=== PATIENT | female | born 1955 | race Caucasian/White ===

== ENCOUNTER 2017-01-27 10:19 | Emergency (ER) ==
[2017-01-27 10:26] VITALS: BP 180/75
== END 2017-01-27 10:40 | disposition left against medical advice (07) ==
LOC: ER 10:19
DX: Z53.9 Procedure and treatment not carried out, unspecified reason (principal)

== ENCOUNTER 2017-02-26 10:02 | Day surgery (SDC) | payer OTHER ==
[~2017-02-26 10:02] MED LIST: PROPOFOL INJ 200 MG/20 ML VIAL IV ONE
[2017-02-26 12:33] VITALS: BP 164/53
--- NOTE | 2017-02-26 13:37 | Operative Report ---
Operative Report DATE OF SURGERY: 02/26/17 Operative Report: The risks, benefits and alternatives of the procedure including risks of bleeding, perforation requiring surgery are explained to the patient detail and informed consent was obtained. Patient was taken back to the endoscopy suite and placed in the left, lateral decubital position. Timeout was called. Propofol medications administered. A rectal examination was done which did not reveal any masses, tears or fissures. An Olympus video scope was inserted into the patient's rectum. The scope was then carefully advanced all the way to the cecum. The cecum was identified by the usual anatomical landmarks including the ileocecal valve as well as appendiceal office. Photodocumentation was obtained. Prep was good. Scope was then sequentially pulled back via the various segments of the colon including the ascending colon, hepatic flexure, transverse colon, splenic flexure, descending colon, and finding to the rectosigmoid portions of the colon. Retroflexion maneuver was performed. PREOPERATIVE DIAGNOSIS: Personal history of colon polyp POSTOPERATIVE DIAGNOSIS: Sigmoid polyp 2 that was removed via snare polypectomy. Rectal polyp 1 this removed via snare polypectomy. Both polyps were retrieved. Internal hemorrhoids OPERATION: Colonoscopy with snare polypectomy SURGEON: JERI LANDON ANESTHESIA: LMAC TISSUE REMOVED OR ALTERED: Polyps retrieved as described COMPLICATIONS: None. ESTIMATED BLOOD LOSS: None. INTRAOPERATIVE FINDINGS: As described above. PROCEDURE: Patient tolerated the procedure well. No immediate postprocedure complications are noted. Patient discharged in good condition. Discharge date 02/26/2017. Discharge diet: Regular. Discharge activity: Regular. 2-3 week follow-up to discuss findings. We will wait on pathology. Patient is instructed to call the office or proceed to the emergency room should there be any further problems or questions. 3-5 year surveillance colonoscopy.
== END 2017-02-26 12:25 | disposition home or self-care (01) ==
LOC: END 10:02
PROVIDERS: ATTEND Internal Medicine Gastroenterology
PROC: 0DBF8ZX Excision of Right Large Intestine, Via Natural or Artificial Opening Endoscopic, Diagnostic (ICD-10-PCS; 2017-02-26)
PROC: 0DBP8ZX Excision of Rectum, Via Natural or Artificial Opening Endoscopic, Diagnostic (ICD-10-PCS; principal; 2017-02-26 12:30)
DX: D12.5 Benign neoplasm of sigmoid colon (principal); K63.5 Polyp of colon; K64.8 Other hemorrhoids; Z80.0 Family history of malignant neoplasm of digestive organs
CPT/HCPCS: 45385; 88305 ×2; J2704; 810

== ENCOUNTER 2020-04-13 09:14 | Inpatient (IN) | payer MEDICARE, BC ==
[2020-04-13] MEDS ORDERED: PENICILLIN V POTASSIUM 500 MG TABLET PO ONE (09:38)
--- NOTE | 2020-04-13 09:42 | ER Document Report ---
ED General - General Chief Complaint: Jaw Pain Stated Complaint: JAW PAIN Time Seen by Provider: 04/13/20 09:24 Primary Care Provider: LYNDON SIMPSON NP [Primary Care Provider] - Follow up as needed Notes: HPI: 64-year-old female that states she woke yesterday with some pain to the left lower jaw. She denies any fevers, vomiting, or facial swelling. She states it hurts to bite food to the left lower jaw. She denies any posterior sore throat or fevers. Patient states for 10 days she has had a nonproductive cough. She denies any and all chest pain or leg swelling. She went to see the primary care physician who placed her on cough medicine. He did not order a coronavirus test. EMS states that the patient was satting between 90 and 92%. Patient does not smoke and is not on oxygen at home and has no history of asthma or COPD. ROS: See HPI All other review of systems reviewed and otherwise negative Reviewed vital signs and nursing note as charted by RN. PHYSICAL EXAM: CONSTITUTIONAL: Alert and oriented and responds appropriately to questions. Well-appearing; well-nourished HEAD: Normocephalic; atraumatic EYES: PERRL; Conjunctivae clear, sclerae non-icteric ENT: Normal nose; no rhinorrhea; moist mucous membranes; pharynx without lesions noted; tenderness to palpation of the left posterior molar region with no obvious dental decay or intraoral abscess. No obvious facial swelling, mastoid tenderness or swelling, with clear TMs bilaterally NECK: Supple without meningismus; non-tender; no palpable anterior or posterior cervical lymphadenopathy, no masses or thyromegaly; no rash or induration or fullness to the neck CARD: Regular rate and rhythm; no murmurs; symmetric distal pulses RESP: Normal chest excursion without splinting or tachypnea; breath sounds clear and equal bilaterally; no wheezes, no rhonchi, no rales ABD/GI: Normal bowel sounds; non-distended; soft, non-tender BACK: The back appears normal and is non-tender to palpation EXT: Normal ROM in all joints; non-tender to palpation; no edema SKIN: No acute lesions noted NEURO: CN 2-12 intact; 5/5 bilateral upper and lower extremity strength with sensation intact to light touch PSYCH: The patient's mood and manner are appropriate. Grooming and personal hygiene are appropriate. TRAVEL OUTSIDE OF THE [place] IN LAST 30 DAYS: No - Related Data Allergies/Adverse Reactions: No Known Allergies Allergy (Verified 04/13/20 10:07) Past Medical History - Social History Smoking Status: Unknown if Ever Smoked Family History: Reviewed & Not Pertinent - Past Medical History Cardiac Medical History: Denies: Hx Coronary Artery Disease, Hx Heart Attack, Hx Hypertension - WHITE COAT Pulmonary Medical History: Denies: Hx Asthma, Hx Bronchitis, Hx COPD, Hx Pneumonia Neurological Medical History: Denies: Hx Cerebrovascular Accident, Hx Seizures Renal/ Medical History: Denies: Hx Peritoneal Dialysis Musculoskeletal Medical History: Denies Hx Arthritis - Immunizations Hx Diphtheria, Pertussis, Tetanus Vaccination: Yes Physical Exam - Vital signs Vitals: Temp Pulse Resp BP Pulse Ox 98.2 F 70 22 H 192/80 H 95 04/13/20 09:14 04/13/20 09:14 04/13/20 09:14 04/13/20 09:14 04/13/20 09:14 Course - Re-evaluation Re-evalutation: 04/13/20 09:41 Given the history and physical examination, we will obtain a cardiac panel, x- ray of the chest, troponin, EKG, and reassess. I will treat the patient with penicillin for the possibility of a dental infection. Given the nonproductive cough for 10 days I would like to evaluate for the possibility of ACS, pneumonia, coronavirus 19, or heart failure. Patient is satting 92 to 93% on room air here. Patient denies any and all chest pain. Has no calf pain or leg swelling. No recent trips or travel. I do believe PE and dissection to be unlikely. 04/13/20 10:01 EKG shows a heart rate of 72, normal sinus rhythm, normal axis, no ST elevation or depression. 04/13/20 11:10 Labs and imaging as recorded. Patient's room air saturation is currently 89-90. Right upper lobe consolidation. I have provided Rocephin and azithromycin. I do anticipate admission for hypoxic pneumonia. - Vital Signs Vital signs: Temp Pulse Resp BP Pulse Ox 98.2 F 70 22 H 192/80 H 95 04/13/20 09:14 04/13/20 09:14 04/13/20 09:14 04/13/20 09:14 04/13/20 09:14 - Laboratory Result Diagrams: 04/13/20 09:04 04/13/20 09:04 Laboratory results interpreted by me: 04/13/20 04/13/20 04/13/20 09:04 09:04 09:04 WBC 13.9 H Lymphocytes % (Manual) 9 L Eosinophils % (Manual) 26 H Absolute Eos (Manual) 3.6 H BUN 28 H Creatinine 1.49 H Est GFR ( Amer) 42 L Est GFR (MDRD) Non-Af 35 L Glucose 138 H NT-Pro-B Natriuret Pep 126 H Discharge - Discharge Clinical Impression: Bacterial pneumonia, Hypoxia Condition: Fair Disposition: ADMITTED INPATIENT Admitting Provider: Le (Hospitalist) Unit Admitted: IMCU Referrals: LYNDON SIMPSON NP [Primary Care Provider] - Follow up as needed
[2020-04-13 09:45] LABS: HEMATOCRIT 44.7 % (36.0-47.0); HEMOGLOBIN 15.4 g/dL (12.0-15.5); MEAN CORPUSCULAR HEMOGLOBIN 30.7 pg (27.0-33.4); MEAN CORPUSCULAR HGB CONC 34.4 g/dL (32.0-36.0); MEAN CORPUSCULAR VOLUME 89 fl (80-97); PLATELET COUNT 350 10^3/uL (150-450); RED BLOOD COUNT 5.02 10^6/uL (3.72-5.28); RED CELL DISTRIBUTION WIDTH 13.8 % (11.5-14.0); WHITE BLOOD COUNT 13.9 10^3/uL (4.0-10.5)
[2020-04-13] MEDS ORDERED: KETOROLAC TROMETHAMINE INJ/PF 30 MG/1 ML SDV IV ONE (10:01)
[2020-04-13 10:02] LABS: ANION GAP 10 (5-19); BLOOD UREA NITROGEN 28 mg/dL (7-20); CALCIUM 9.8 mg/dL (8.4-10.2); CARBON DIOXIDE 26 mmol/L (22-30); CHLORIDE 102 mmol/L (98-107); GLUCOSE 138 mg/dL (75-110); POTASSIUM 3.8 mmol/L (3.6-5.0)
[2020-04-13 10:18] LABS: ABSOLUTE LYMPHOCYTES# (MANUAL) 1.4 10^3/uL (0.5-4.7); BASOPHILS % (MANUAL) 0 % (0-2); LYMPHOCYTES % (MANUAL) 9 % (13-45); MONOCYTES % (MANUAL) 7 % (3-13); SEGMENTED NEUTROPHILS % (MAN) 57 % (42-78); TOTAL CELLS COUNTED 100
--- NOTE | 2020-04-13 10:19 | RADIOLOGY REPORT (SQ) ---
EXAM DESCRIPTION: CHEST SINGLE VIEW IMAGES COMPLETED DATE/TIME: 04/13/2020 10:07 am REASON FOR STUDY: 36; SOB COMPARISON: None. EXAM PARAMETERS: NUMBER OF VIEWS: One view. TECHNIQUE: Single frontal radiographic view of the chest acquired. RADIATION DOSE: NA LIMITATIONS: None. FINDINGS: LUNGS AND PLEURA: Consolidation in the right upper lobe along the fissure. Minimal linear atelectasis in the left base. Lung chung are otherwise clear. No pneumothorax. MEDIASTINUM AND HILAR STRUCTURES: No masses. Contour normal. HEART AND VASCULAR STRUCTURES: Heart normal in size. Normal vasculature. BONES: No acute findings. HARDWARE: None in the chest. OTHER: No other significant finding. IMPRESSION: Right upper lobe consolidation consistent with pneumonia. TECHNICAL DOCUMENTATION: JOB ID: [id number] 2010 [employer]- All Rights Reserved Reading location - IP/workstation name: [email or web address]
[2020-04-13 10:21] LABS: RBC MORPHOLOGY COMMENT NORMO-CYTIC/CHROMIC
[2020-04-13 10:23] LABS: PLATELET CLUMPS PRESENT; PLATELET COMMENT ADEQUATE
[2020-04-13 10:25] LABS: EOSINOPHILS % (MANUAL) 26 % (0-6)
[2020-04-13] MEDS ORDERED: CEFTRIAXONE 1 GM/D5W RTU 1 GM/50 ML RTUPB IV ONE (11:10)
[2020-04-13] MEDS ORDERED: AZITHROMYCIN INJ 500 MG VIAL IV ONE (11:10)
--- NOTE | 2020-04-13 11:15 | EKG REPORT ---
SEVERITY:- NORMAL ECG - SINUS RHYTHM : Confirmed by: Khoa Hyman MD 13-Apr-2020 11:14:31
[2020-04-13] MEDS ORDERED: ONDANSETRON HCL INJ/PF 4 MG/2 ML SDV IV PRN (12:20)
--- NOTE | 2020-04-13 12:20 | PDOC H&P ---
History of Present Illness Admission Date/PCP: LYNDON SIMPSON NP Patient complains of: Left jaw pain History of Present Illness: KIM THOMAS is a 64 year old female with history of hypertension went to urgent care this morning with complaints of left jaw pain found to have very high blood pressures patient was referred to ER for further evaluation. Work-up in the ER shows right upper lobe consolidative pneumonia and the patient was hypoxic pulse ox is 89% at the time of arrival. Patient was started on Rocephin and Zithromax tested for COVID. As per the patient test was done 2 weeks ago at [facility] which was negative. Past Medical History Cardiac Medical History: Denies: Coronary Artery Disease, Myocardial Infarction, Hypertension - WHITE COAT Pulmonary Medical History: Denies: Asthma, Bronchitis, Chronic Obstructive Pulmonary Disease (COPD), Pneumonia Neurological Medical History: Denies: Seizures Musculoskeltal Medical History: Denies: Arthritis Hematology: Denies: Anemia Past Surgical History Past Surgical History: Reports: Orthopedic Surgery - right hand Social History Information Source: Patient Smoking Status: Unknown if Ever Smoked Electronic Cigarette use?: No Hx Recreational Drug Use: No Hx Prescription Drug Abuse: No - Advance Directive Resuscitation Status: Full Code Family History Family History: Reviewed & Not Pertinent Parental Family History Reviewed: Yes - Hypertension Children Family History Reviewed: Yes Sibling(s) Family History Reviewed.: Yes Medication/Allergy Home Medications: Multivitamin [Multivitamins] 1 tab PO DAILY 02/23/17 Allergies/Adverse Reactions: No Known Allergies Allergy (Verified 04/13/20 10:07) Review of Systems Constitutional: PRESENT: fatigue, weakness. ABSENT: fever(s), headache(s), night sweats Eyes: ABSENT: visual disturbances Ears: ABSENT: hearing changes Nose, Mouth, and Throat: PRESENT: other - left jaw pain. ABSENT: sore throat Cardiovascular: PRESENT: dyspnea on exertion Respiratory: PRESENT: dyspnea Physical Exam Vital Signs: Temp Pulse Resp BP Pulse Ox 98.2 F 70 23 H 168/80 H 97 04/13/20 09:14 04/13/20 09:14 04/13/20 11:01 04/13/20 11:01 04/13/20 11:01 Intake & Output 04/12/20 04/13/20 04/14/20 06:59 06:59 06:59 Intake Total 250 Balance 250 Weight 83.461 kg General appearance: PRESENT: no acute distress, cooperative, well-developed Head exam: PRESENT: atraumatic Eye exam: PRESENT: PERRLA Mouth exam: PRESENT: moist, tongue midline Teeth exam: PRESENT: poor dentation Neck exam: ABSENT: carotid bruit, JVD, lymphadenopathy, thyromegaly Respiratory exam: PRESENT: decreased breath sounds Cardiovascular exam: PRESENT: RRR. ABSENT: diastolic murmur, rubs, systolic murmur Pulses: PRESENT: normal dorsalis pedis pul GI/Abdominal exam: PRESENT: normal bowel sounds, soft. ABSENT: distended, guarding, mass, organolmegaly, rebound, tenderness Rectal exam: PRESENT: deferred Extremities exam: PRESENT: full ROM. ABSENT: calf tenderness, clubbing, pedal edema Neurological exam: PRESENT: alert, awake, oriented to person, oriented to place, oriented to time, oriented to situation, CN II-XII grossly intact. ABSENT: motor sensory deficit Psychiatric exam: PRESENT: appropriate affect, normal mood. ABSENT: homicidal ideation, suicidal ideation Results Laboratory Results: 04/13/20 09:04 04/13/20 09:04 04/13/20 04/13/20 09:04 09:04 WBC 13.9 H RBC 5.02 Hgb 15.4 Hct 44.7 MCV 89 MCH 30.7 MCHC 34.4 RDW 13.8 Plt Count 350 Seg Neutrophils % Not Reportable Sodium 137.6 Potassium 3.8 Chloride 102 Carbon Dioxide 26 Anion Gap 10 BUN 28 H Creatinine 1.49 H Est GFR ( Amer) 42 L Glucose 138 H Calcium 9.8 04/13/20 04/13/20 09:04 09:04 Troponin I < 0.012 NT-Pro-B Natriuret Pep 126 H Impressions: Chest X-Ray 04/13/20 09:38 IMPRESSION: Right upper lobe consolidation consistent with pneumonia. Assessment and Plan - Diagnosis (1) Bacterial pneumonia Is this a current diagnosis for this admission?: Yes Plan: 04/13/2020-patient is going to be admitted to [facility] for right upper lobe consolidated pneumonia blood cultures sputum cultures are pending Kober test is pending to continue IV Rocephin and Zithromax. GI prophylaxis DVT prophylaxis will be initiated. (2) Hypoxia Is this a current diagnosis for this admission?: Yes Plan: 04/13/2020-patient came in with pulse ox of 89%. Requiring oxygen supplementations. Chest x-ray indicated for right upper lobe consolidative pneumonia. Coronavirus testing is pending. Hypoxia most likely secondary to pneumonia. (3) HTN (hypertension) Is this a current diagnosis for this admission?: Yes Plan: 04/13/2020-patient found to have a very high elevated blood pressures to start her on IV hydralazine 10 mg every 6 hours as needed for systolic blood pressure more than 170. (4) COVID-19 Is this a current diagnosis for this admission?: Yes Plan: 04/13/2020-coronavirus testing is pending. Patient has a test done in [facility] 2 weeks ago which was negative. - Time Anticipated Discharge Disposition: Home, Self Care Anticipated Discharge Timeframe: within 72 hours
[2020-04-13] MEDS ORDERED: HYDRALAZINE HCL INJ/PF 20 MG/1 ML SDV IV PRN ×2 (12:25→17:53)
[2020-04-13] MEDS: ACETAMINOPHEN 325 MG TABLET PO PRN ×2 (13:48→17:57)
[2020-04-13] MEDS: OXYCODONE-ACETAMINOPHEN 5-325 MG TABLET PO PRN ×2 (16:11→22:26)
[2020-04-13] MEDS: PANTOPRAZOLE SODIUM 40 MG TABLET.DR PO SCH (17:34)
[2020-04-13] MEDS ORDERED: KETOROLAC TROMETHAMINE INJ/PF 30 MG/1 ML SDV ONE (17:56)
[2020-04-13] MEDS: KETOROLAC TROMETHAMINE INJ/PF 30 MG/1 ML SDV IV SCH ×2 (18:10→23:32)
--- NOTE | 2020-04-13 21:18 | RADIOLOGY REPORT (SQ) ---
CT MAXILLOFACIAL WITHOUT IV CONTRAST HISTORY: Left jaw pain. COMPARISON: None. TECHNIQUE: CT scan of the facial bones was performed without IV contrast. This exam was performed according to our departmental dose-optimization program, which includes automated exposure control, adjustment of the mA and/or kV according to patient size and/or use of iterative reconstruction technique. FINDINGS: No acute facial bone fracture is seen. No air-fluid levels are seen in the paranasal sinuses. There is minimal mucosal thickening of the bilateral ethmoid air cells. The mastoid air cells are clear. No retrobulbar mass or hematoma is identified. IMPRESSION: No acute facial bone fracture.
[2020-04-14 03:53] LABS: ABSOLUTE BASOPHILS # (AUTO) 0.1 10^3/uL (0.0-0.2); ABSOLUTE EOSINOPHILS # (AUTO) 2.6 10^3/uL (0.0-0.6); ABSOLUTE LYMPHOCYTES (AUTO) 1.6 10^3/uL (0.5-4.7); ABSOLUTE MONOCYTES (AUTO) 0.9 10^3/uL (0.1-1.4); ABSOLUTE NEUT (AUTO) 7.5 10^3/uL (1.7-8.2); BASOPHILS % (AUTO) 0.8 % (0-2); EOSINOPHILS % (AUTO) 20.5 % (0-6); HEMATOCRIT 43.4 % (36.0-47.0); HEMOGLOBIN 14.9 g/dL (12.0-15.5); LYMPHOCYTES % (AUTO) 12.9 % (13-45); MEAN CORPUSCULAR HEMOGLOBIN 30.3 pg (27.0-33.4); MEAN CORPUSCULAR HGB CONC 34.3 g/dL (32.0-36.0); MEAN CORPUSCULAR VOLUME 88 fl (80-97); MONOCYTES % (AUTO) 7.1 % (3-13); PLATELET COUNT 333 10^3/uL (150-450); RED BLOOD COUNT 4.91 10^6/uL (3.72-5.28); RED CELL DISTRIBUTION WIDTH 13.8 % (11.5-14.0); SEGMENTED NEUTROPHILS % (AUTO) 58.7 % (42-78); TOTAL CELLS COUNTED % (AUTO) 100 %; WHITE BLOOD COUNT 12.7 10^3/uL (4.0-10.5)
[2020-04-14] MEDS: OXYCODONE-ACETAMINOPHEN 5-325 MG TABLET PO PRN ×2 (04:00→16:07)
[2020-04-14 04:08] LABS: ALBUMIN 3.2 g/dL (3.5-5.0); ALKALINE PHOSPHATASE 64 U/L (38-126); ANION GAP 10 (5-19); ASPARTATE AMINO TRANSFERASE 32 U/L (14-36); BILIRUBIN,DIRECT 0.3 mg/dL (0.0-0.4); BILIRUBIN,TOTAL 0.9 mg/dL (0.2-1.3); BLOOD UREA NITROGEN 26 mg/dL (7-20); CALCIUM 9.6 mg/dL (8.4-10.2); CARBON DIOXIDE 22 mmol/L (22-30); CHLORIDE 105 mmol/L (98-107); CHOLESTEROL 234.61 mg/dL (0-200); GLUCOSE 119 mg/dL (75-110); POTASSIUM 3.8 mmol/L (3.6-5.0); TOTAL PROTEIN 5.5 g/dL (6.3-8.2); TRIGLYCERIDES 383 mg/dL (<150)
[2020-04-14 04:11] LABS: VLDL CHOLESTEROL 76.6 mg/dL (10-31)
[2020-04-14 04:20] LABS: DIRECT LDL 142 mg/dL (<100)
[2020-04-14] MEDS: PANTOPRAZOLE SODIUM 40 MG TABLET.DR PO SCH ×2 (05:39→16:06)
[2020-04-14] MEDS ORDERED: PANTOPRAZOLE SODIUM 40 MG TABLET.DR PO SCH (06:00)
[2020-04-14] MEDS: KETOROLAC TROMETHAMINE INJ/PF 30 MG/1 ML SDV IV SCH ×3 (06:38→17:50)
[2020-04-14] MEDS ORDERED: AZITHROMYCIN 500 MG in DEXTROSE 5%-WATER 250 ML IV SCH (08:00)
[2020-04-14] MEDS: ENOXAPARIN SODIUM INJ 40 MG/0.4 ML DISP.SYRIN SUBCUT SCH (09:09)
[2020-04-14] MEDS ORDERED: CEFTRIAXONE 1 GM/D5W RTU 1 GM/50 ML RTUPB IV SCH (10:00)
[2020-04-14] MEDS ORDERED: AZITHROMYCIN INJ 500 MG VIAL IV SCH (10:00)
--- NOTE | 2020-04-14 10:09 | PDOC PROGRESS REPORT ---
Subjective Progress Note for:: 04/14/20 Subjective:: a 64 year old female with history of hypertension went to urgent care this morning with complaints of left jaw pain found to have very high blood pressures patient was referred to ER for further evaluation. Work-up in the ER shows right upper lobe consolidative pneumonia and the patient was hypoxic pulse ox is 89% at the time of arrival. Patient was started on Rocephin and Zithromax tested for COVID. As per the patient test was done 2 weeks ago at [facility] which was negative. 04/14/[id number]-tgkk-old female admitted for right upper lobe consolidated pneumonia. Most likely community-acquired pneumonia getting IV antibiotic therapy. Still complaining of left jaw pain CT of the facial bones is normal. Patient is receiving Percocet and Toradol at this time. Troponins are negative. Coronavirus testing is negative. Reason For Visit: PNEUMONIA Physical Exam Vital Signs: Temp Pulse Resp BP Pulse Ox 98.1 F 71 20 145/47 H 94 04/14/20 07:33 04/14/20 07:33 04/14/20 07:33 04/14/20 07:33 04/14/20 07:33 Intake & Output 04/13/20 04/14/20 04/15/20 06:59 06:59 06:59 Intake Total 300 Balance 300 Weight 88.1 kg General appearance: PRESENT: no acute distress, cooperative, obese Head exam: PRESENT: atraumatic Eye exam: PRESENT: PERRLA Ear exam: PRESENT: normal external ear exam Mouth exam: PRESENT: neck supple Teeth exam: PRESENT: poor dentation Neck exam: ABSENT: carotid bruit, JVD, lymphadenopathy, thyromegaly Respiratory exam: PRESENT: decreased breath sounds Cardiovascular exam: PRESENT: RRR. ABSENT: diastolic murmur, rubs, systolic murmur GI/Abdominal exam: PRESENT: normal bowel sounds, soft. ABSENT: distended, guarding, mass, organolmegaly, rebound, tenderness Rectal exam: PRESENT: deferred Extremities exam: PRESENT: full ROM. ABSENT: calf tenderness, clubbing, pedal edema Neurological exam: PRESENT: alert, awake, oriented to person, oriented to place, oriented to time, oriented to situation, CN II-XII grossly intact. ABSENT: motor sensory deficit Results Laboratory Results: 04/14/20 03:42 04/14/20 03:42 04/13/20 04/13/20 04/14/20 09:04 09:04 03:42 WBC 13.9 H 12.7 H RBC 5.02 4.91 Hgb 15.4 14.9 Hct 44.7 43.4 MCV 89 88 MCH 30.7 30.3 MCHC 34.4 34.3 RDW 13.8 13.8 Plt Count 350 333 Seg Neutrophils % Not Reportable 58.7 Sodium 137.6 Potassium 3.8 Chloride 102 Carbon Dioxide 26 Anion Gap 10 BUN 28 H Creatinine 1.49 H Est GFR ( Amer) 42 L Glucose 138 H Calcium 9.8 Magnesium Total Bilirubin AST Alkaline Phosphatase Total Protein Albumin Triglycerides Cholesterol LDL Cholesterol Direct VLDL Cholesterol HDL Cholesterol TSH 04/14/20 04/14/20 03:42 03:42 WBC RBC Hgb Hct MCV MCH MCHC RDW Plt Count Seg Neutrophils % Sodium 136.7 L Potassium 3.8 Chloride 105 Carbon Dioxide 22 Anion Gap 10 BUN 26 H Creatinine 1.10 Est GFR ( Amer) > 60 Glucose 119 H Calcium 9.6 Magnesium 2.3 Total Bilirubin 0.9 AST 32 Alkaline Phosphatase 64 Total Protein 5.5 L Albumin 3.2 L Triglycerides 383 H Cholesterol 234.61 H LDL Cholesterol Direct 142 H VLDL Cholesterol 76.6 H HDL Cholesterol 46 TSH 2.74 04/13/20 04/13/20 04/13/20 09:04 09:04 15:54 Troponin I < 0.012 < 0.012 NT-Pro-B Natriuret Pep 126 H 04/13/20 04/14/20 21:19 03:42 Troponin I < 0.012 < 0.012 NT-Pro-B Natriuret Pep Impressions: Facial Bones CT 04/13/20 00:00 IMPRESSION: No acute facial bone fracture. Chest X-Ray 04/13/20 09:38 IMPRESSION: Right upper lobe consolidation consistent with pneumonia. Assessment and Plan - Diagnosis (1) Bacterial pneumonia Is this a current diagnosis for this admission?: Yes Plan: 04/13/2020-patient is going to be admitted to [facility] for right upper lobe consolidated pneumonia blood cultures sputum cultures are pending Kober test is pending to continue IV Rocephin and Zithromax. GI prophylaxis DVT prophylaxis will be initiated. 04/14/2020-patient admitted for right-sided consolidative pneumonia on IV Rocephin and Zithromax. Blood cultures are pending at this time. Pulse ox is 92% room air. (2) Hypoxia Is this a current diagnosis for this admission?: Yes Plan: 04/13/2020-patient came in with pulse ox of 89%. Requiring oxygen supplementations. Chest x-ray indicated for right upper lobe consolidative pneumonia. Coronavirus testing is pending. Hypoxia most likely secondary to pneumonia. 920-patient admitted with acute respiratory failure with hypoxia most likely secondary to underlying pneumonia resolving. Pulse ox is 92% room air today. (3) HTN (hypertension) Is this a current diagnosis for this admission?: Yes Plan: 04/13/2020-patient found to have a very high elevated blood pressures to start her on IV hydralazine 10 mg every 6 hours as needed for systolic blood pressure more than 170. 04/14/2020-blood pressure this morning is 158/60. Receiving IV hydralazine 20 mg every 6 hours as needed for systolic blood pressure more than 170. To start the patient on norvasc 10 mg p.o. daily. (4) COVID-19 Is this a current diagnosis for this admission?: Yes Plan: 04/13/2020-coronavirus testing is pending. Patient has a test done in [facility] 2 weeks ago which was negative. 04/14/2020-coronavirus testing came back negative. - Time Anticipated Discharge Disposition: Home, Self Care Anticipated Discharge Timeframe: within 48 hours
[2020-04-14 11:20] LABS: PATH REVIEW PATHOLOGIST REVIEWED
[2020-04-14] MEDS: MULTIVITAMIN TABLET PO SCH (12:01)
[2020-04-14] MEDS: VANCOMYCIN HCL 1,500 MG in DEXTROSE 5%-WATER 250 ML IV SCH (20:00)
[2020-04-14] MEDS ORDERED: PIPERACILLIN/TAZOBACTAM 3.375 GM VIAL IV SCH (22:00)
[2020-04-14] MEDS: PIPERACILLIN SODIUM/TAZOBACTAM 3.375 GM in NORMAL SALINE 100 ML IV SCH (22:11)
[2020-04-15] MEDS: KETOROLAC TROMETHAMINE INJ/PF 30 MG/1 ML SDV IV SCH ×4 (00:09→17:37)
[2020-04-15] MEDS: PANTOPRAZOLE SODIUM 40 MG TABLET.DR PO SCH ×2 (05:21→17:37)
[2020-04-15] MEDS: PIPERACILLIN SODIUM/TAZOBACTAM 3.375 GM in NORMAL SALINE 100 ML IV SCH ×3 (05:21→23:06)
[2020-04-15] MEDS: MULTIVITAMIN TABLET PO SCH (09:11)
[2020-04-15] MEDS: ENOXAPARIN SODIUM INJ 40 MG/0.4 ML DISP.SYRIN SUBCUT SCH (09:11)
--- NOTE | 2020-04-15 09:15 | PDOC PROGRESS REPORT ---
Subjective Progress Note for:: 04/15/20 Subjective:: a 64 year old female with history of hypertension went to urgent care this morning with complaints of left jaw pain found to have very high blood pressures patient was referred to ER for further evaluation. Work-up in the ER shows right upper lobe consolidative pneumonia and the patient was hypoxic pulse ox is 89% at the time of arrival. Patient was started on Rocephin and Zithromax tested for COVID. As per the patient test was done 2 weeks ago at [facility] which was negative. 04/14/2084-89-blpi-old female admitted for right upper lobe consolidated pneumonia. Most likely community-acquired pneumonia getting IV antibiotic therapy. Still complaining of left jaw pain CT of the facial bones is normal. Patient is receiving Percocet and Toradol at this time. Troponins are negative. Coronavirus testing is negative. 04/15/2020-patient is feeling much better. Blood cultures are negative. Patient is receiving Zosyn and vancomycin for right-sided pneumonia. Left sided jaw pain and swelling is resolving. Pulse ox is 93% on 1 end of liters. Plan is to continue the antibiotic therapy probably discharge home with p.o. antibiotic therapy. Reason For Visit: PNEUMONIA Physical Exam Vital Signs: Temp Pulse Resp BP Pulse Ox 98.2 F 69 16 143/56 H 95 04/15/20 08:07 04/15/20 08:07 04/15/20 08:07 04/15/20 08:07 04/15/20 08:07 Intake & Output 04/14/20 04/15/20 04/16/20 06:59 06:59 06:59 Intake Total 300 1747 Output Total 340 Balance 300 1407 Weight 88.1 kg 84.1 kg General appearance: PRESENT: no acute distress, cooperative Head exam: PRESENT: atraumatic Eye exam: PRESENT: PERRLA Mouth exam: PRESENT: moist, tongue midline Teeth exam: PRESENT: poor dentation Neck exam: ABSENT: carotid bruit, JVD, lymphadenopathy, thyromegaly Respiratory exam: PRESENT: decreased breath sounds Cardiovascular exam: PRESENT: RRR. ABSENT: diastolic murmur, rubs, systolic murmur GI/Abdominal exam: PRESENT: normal bowel sounds, soft. ABSENT: distended, guarding, mass, organolmegaly, rebound, tenderness Rectal exam: PRESENT: deferred Extremities exam: PRESENT: full ROM. ABSENT: calf tenderness, clubbing, pedal edema Neurological exam: PRESENT: alert, awake, oriented to person, oriented to place, oriented to time, oriented to situation, CN II-XII grossly intact. ABSENT: motor sensory deficit Psychiatric exam: PRESENT: appropriate affect, normal mood. ABSENT: homicidal ideation, suicidal ideation Results Laboratory Results: 04/14/20 03:42 04/14/20 03:42 04/13/20 04/13/20 04/13/20 09:04 09:04 15:54 Troponin I < 0.012 < 0.012 NT-Pro-B Natriuret Pep 126 H 04/13/20 04/14/20 21:19 03:42 Troponin I < 0.012 < 0.012 NT-Pro-B Natriuret Pep Impressions: Facial Bones CT 04/13/20 00:00 IMPRESSION: No acute facial bone fracture. Chest X-Ray 04/13/20 09:38 IMPRESSION: Right upper lobe consolidation consistent with pneumonia. Assessment and Plan - Diagnosis (1) Bacterial pneumonia Is this a current diagnosis for this admission?: Yes Plan: 04/13/2020-patient is going to be admitted to [facility] for right upper lobe consolidated pneumonia blood cultures sputum cultures are pending Kober test is pending to continue IV Rocephin and Zithromax. GI prophylaxis DVT prophylaxis will be initiated. 04/14/2020-patient admitted for right-sided consolidative pneumonia on IV Rocephin and Zithromax. Blood cultures are pending at this time. Pulse ox is 92% room air. 04/15/2020-patient admitted with community-acquired pneumonia presently on IV Zosyn and vancomycin. Blood cultures are negative. Pulse ox requirements are decreasing. Cover test is negative. Probable discharge home tomorrow with p.o. antibiotic therapy. (2) Hypoxia Is this a current diagnosis for this admission?: Yes Plan: 04/13/2020-patient came in with pulse ox of 89%. Requiring oxygen supplementations. Chest x-ray indicated for right upper lobe consolidative pneumonia. Coronavirus testing is pending. Hypoxia most likely secondary to pneumonia. 920-patient admitted with acute respiratory failure with hypoxia most likely secondary to underlying pneumonia resolving. Pulse ox is 92% room air today. 04/15/2020-patient came in with acute respiratory failure with hypoxia improving. Pulse ox is 93% on 1.5 liters. Plan is to discharge home tomorrow with p.o. antibiotic therapy. (3) HTN (hypertension) Is this a current diagnosis for this admission?: Yes Plan: 04/13/2020-patient found to have a very high elevated blood pressures to start her on IV hydralazine 10 mg every 6 hours as needed for systolic blood pressure more than 170. 04/14/2020-blood pressure this morning is 158/60. Receiving IV hydralazine 20 mg every 6 hours as needed for systolic blood pressure more than 170. To start the patient on norvasc 10 mg p.o. daily. 04/15/2020-blood pressure this morning is 138/60. Receiving IV hydralazine 20 mg every 6 hours as needed for systolic blood pressure more than 170 and add Norvasc 10 mg p.o. daily. Plan is to continue the present management at this time. (4) COVID-19 Is this a current diagnosis for this admission?: Yes Plan: 04/13/2020-coronavirus testing is pending. Patient has a test done in [facility] 2 weeks ago which was negative. 04/14/2020-coronavirus testing came back negative. - Time Anticipated Discharge Disposition: Home, Self Care Anticipated Discharge Timeframe: within 24 hours
[2020-04-15] MEDS ORDERED: VANCOMYCIN HCL INJ 1000 MG VIAL IV SCH (10:00)
[2020-04-15] MEDS ORDERED: (PENDING PHARMACY ID) (Multivitamin [Multivitamins] 1 TAB) PO SCH (10:00)
[2020-04-15] MEDS: VANCOMYCIN HCL 1,500 MG in DEXTROSE 5%-WATER 250 ML IV SCH (20:36)
[2020-04-16] MEDS: KETOROLAC TROMETHAMINE INJ/PF 30 MG/1 ML SDV IV SCH ×4 (00:13→18:10)
[2020-04-16] MEDS: PIPERACILLIN SODIUM/TAZOBACTAM 3.375 GM in NORMAL SALINE 100 ML IV SCH ×3 (05:19→21:21)
[2020-04-16] MEDS: PANTOPRAZOLE SODIUM 40 MG TABLET.DR PO SCH ×2 (05:19→18:10)
[2020-04-16 07:11] LABS: ALBUMIN 2.8 g/dL (3.5-5.0); ALKALINE PHOSPHATASE 53 U/L (38-126); ANION GAP 6 (5-19); ASPARTATE AMINO TRANSFERASE 22 U/L (14-36); BILIRUBIN,DIRECT 0.3 mg/dL (0.0-0.4); BILIRUBIN,TOTAL 0.5 mg/dL (0.2-1.3); BLOOD UREA NITROGEN 27 mg/dL (7-20); CALCIUM 9.3 mg/dL (8.4-10.2); CARBON DIOXIDE 25 mmol/L (22-30); CHLORIDE 110 mmol/L (98-107); GLUCOSE 98 mg/dL (75-110); POTASSIUM 3.9 mmol/L (3.6-5.0); TOTAL PROTEIN 5.1 g/dL (6.3-8.2)
[2020-04-16 07:24] LABS: HEMATOCRIT 35.4 % (36.0-47.0); MEAN CORPUSCULAR HEMOGLOBIN 31.3 pg (27.0-33.4); MEAN CORPUSCULAR HGB CONC 34.8 g/dL (32.0-36.0); MEAN CORPUSCULAR VOLUME 90 fl (80-97); PLATELET COUNT 262 10^3/uL (150-450); RED BLOOD COUNT 3.94 10^6/uL (3.72-5.28); RED CELL DISTRIBUTION WIDTH 14.4 % (11.5-14.0); WHITE BLOOD COUNT 5.4 10^3/uL (4.0-10.5)
[2020-04-16 08:03] LABS: HEMOGLOBIN 12.3 g/dL (12.0-15.5)
[2020-04-16 08:12] LABS: ABSOLUTE LYMPHOCYTES# (MANUAL) 1.2 10^3/uL (0.5-4.7); ABSOLUTE MONOCYTES # (MANUAL) 0.3 10^3/uL (0.1-1.4); BASOPHILS % (MANUAL) 0 % (0-2); EOSINOPHILS % (MANUAL) 22 % (0-6); LYMPHOCYTES % (MANUAL) 21 % (13-45); MONOCYTES % (MANUAL) 6 % (3-13); SEGMENTED NEUTROPHILS % (MAN) 49 % (42-78); TOTAL CELLS COUNTED 100
[2020-04-16 08:14] LABS: OVALOCYTES SLIGHT; PLATELET COMMENT ADEQUATE; POIKILOCYTOSIS SLIGHT
[2020-04-16] MEDS ORDERED: NORMAL SALINE 1000 ML 1,000 ML IV PRN (09:44)
--- NOTE | 2020-04-16 09:53 | PDOC PROGRESS REPORT ---
Subjective Progress Note for:: 04/16/20 Subjective:: a 64 year old female with history of hypertension went to urgent care this morning with complaints of left jaw pain found to have very high blood pressures patient was referred to ER for further evaluation. Work-up in the ER shows right upper lobe consolidative pneumonia and the patient was hypoxic pulse ox is 89% at the time of arrival. Patient was started on Rocephin and Zithromax tested for COVID. As per the patient test was done 2 weeks ago at [facility] which was negative. 04/14/1994-89-mpmm-old female admitted for right upper lobe consolidated pneumonia. Most likely community-acquired pneumonia getting IV antibiotic therapy. Still complaining of left jaw pain CT of the facial bones is normal. Patient is receiving Percocet and Toradol at this time. Troponins are negative. Coronavirus testing is negative. 04/15/2020-patient is feeling much better. Blood cultures are negative. Patient is receiving Zosyn and vancomycin for right-sided pneumonia. Left sided jaw pain and swelling is resolving. Pulse ox is 93% on 1 end of liters. Plan is to continue the antibiotic therapy probably discharge home with p.o. antibiotic therapy. 04/16/20 no acute events in the last 24 hours. Afebrile. Complaining of cough to give Tessalon Perles. Creatinine went up from 1.1-1.6 to discontinue IV vancomycin and continue IV Zosyn. Plan is to give gentle IV hydration today recheck labs tomorrow prior to discharge. Reason For Visit: PNEUMONIA Physical Exam Vital Signs: Temp Pulse Resp BP Pulse Ox 97.9 F 65 18 154/62 H 97 04/16/20 07:09 04/16/20 07:09 04/16/20 07:09 04/16/20 07:09 04/16/20 07:09 Intake & Output 04/15/20 04/16/20 04/17/20 06:59 06:59 06:59 Intake Total 1747 1920 Output Total 340 1450 Balance 1407 470 Weight 84.1 kg 85.1 kg General appearance: PRESENT: no acute distress, cooperative Head exam: PRESENT: atraumatic Eye exam: PRESENT: PERRLA Mouth exam: PRESENT: moist, tongue midline Teeth exam: PRESENT: poor dentation Neck exam: ABSENT: carotid bruit, JVD, lymphadenopathy, thyromegaly Respiratory exam: PRESENT: decreased breath sounds Cardiovascular exam: PRESENT: RRR. ABSENT: diastolic murmur, rubs, systolic murmur GI/Abdominal exam: PRESENT: normal bowel sounds, soft. ABSENT: distended, guarding, mass, organolmegaly, rebound, tenderness Rectal exam: PRESENT: deferred Extremities exam: PRESENT: full ROM. ABSENT: calf tenderness, clubbing, pedal edema Neurological exam: PRESENT: alert, awake, oriented to person, oriented to place, oriented to time, oriented to situation, CN II-XII grossly intact. ABSENT: motor sensory deficit Psychiatric exam: PRESENT: appropriate affect, normal mood. ABSENT: homicidal ideation, suicidal ideation Results Laboratory Results: 04/16/20 05:37 04/16/20 05:37 04/16/20 04/16/20 05:37 05:37 WBC 5.4 RBC 3.94 Hgb 12.3 D Hct 35.4 L MCV 90 MCH 31.3 MCHC 34.8 RDW 14.4 H Plt Count 262 Seg Neutrophils % Not Reportable Sodium 141.2 Potassium 3.9 Chloride 110 H Carbon Dioxide 25 Anion Gap 6 BUN 27 H Creatinine 1.63 H Est GFR ( Amer) 38 L Glucose 98 Calcium 9.3 Total Bilirubin 0.5 AST 22 Alkaline Phosphatase 53 Total Protein 5.1 L Albumin 2.8 L 04/13/20 04/13/20 04/13/20 09:04 09:04 15:54 Troponin I < 0.012 < 0.012 NT-Pro-B Natriuret Pep 126 H 04/13/20 04/14/20 21:19 03:42 Troponin I < 0.012 < 0.012 NT-Pro-B Natriuret Pep Impressions: Facial Bones CT 04/13/20 00:00 IMPRESSION: No acute facial bone fracture. Chest X-Ray 04/13/20 09:38 IMPRESSION: Right upper lobe consolidation consistent with pneumonia. Assessment and Plan - Diagnosis (1) Bacterial pneumonia Is this a current diagnosis for this admission?: Yes Plan: 04/13/2020-patient is going to be admitted to [facility] for right upper lobe consolidated pneumonia blood cultures sputum cultures are pending Kober test is pending to continue IV Rocephin and Zithromax. GI prophylaxis DVT prophylaxis will be initiated. 04/14/2020-patient admitted for right-sided consolidative pneumonia on IV Rocephin and Zithromax. Blood cultures are pending at this time. Pulse ox is 92% room air. 04/15/2020-patient admitted with community-acquired pneumonia presently on IV Z osyn and vancomycin. Blood cultures are negative. Pulse ox requirements are decreasing. Cover test is negative. Probable discharge home tomorrow with p.o. antibiotic therapy. 04/16/2020-patient admitted with community-acquired pneumonia presently on IV Zosyn and vancomycin. Plan is to continue IV Zosyn, to stop IV vancomycin because creatinine went up to 1.6. Plan is to give her normal saline at 50 cc/h to repeat the labs tomorrow. (2) Hypoxia Is this a current diagnosis for this admission?: Yes Plan: 04/13/2020-patient came in with pulse ox of 89%. Requiring oxygen supplementations. Chest x-ray indicated for right upper lobe consolidative pneumonia. Coronavirus testing is pending. Hypoxia most likely secondary to pneumonia. 920-patient admitted with acute respiratory failure with hypoxia most likely secondary to underlying pneumonia resolving. Pulse ox is 92% room air today. 04/15/2020-patient came in with acute respiratory failure with hypoxia improving. Pulse ox is 93% on 1.5 liters. Plan is to discharge home tomorrow with p.o. antibiotic therapy. 04/16/2020-patient admitted with acute on chronic respiratory failure with hypoxia. Improving. Pulse ox is 97% room air. (3) HTN (hypertension) Is this a current diagnosis for this admission?: Yes Plan: 04/13/2020-patient found to have a very high elevated blood pressures to start her on IV hydralazine 10 mg every 6 hours as needed for systolic blood pressure more than 170. 04/14/2020-blood pressure this morning is 158/60. Receiving IV hydralazine 20 mg every 6 hours as needed for systolic blood pressure more than 170. To start the patient on norvasc 10 mg p.o. daily. 04/15/2020-blood pressure this morning is 138/60. Receiving IV hydralazine 20 mg every 6 hours as needed for systolic blood pressure more than 170 and add Norvasc 10 mg p.o. daily. Plan is to continue the present management at this time. 04/16/2020-blood pressure today is 130/60. Stable. Low-salt diet advised. Weight loss is advised. Patient is presently on Norvasc 10 mg p.o. daily. (4) COVID-19 Is this a current diagnosis for this admission?: Yes Plan: 04/13/2020-coronavirus testing is pending. Patient has a test done in [facility] 2 weeks ago which was negative. 04/14/2020-coronavirus testing came back negative. - Time Anticipated Discharge Disposition: Home, Self Care Anticipated Discharge Timeframe: within 24 hours
[2020-04-16] MEDS: ENOXAPARIN SODIUM INJ 40 MG/0.4 ML DISP.SYRIN SUBCUT SCH (09:56)
[2020-04-16] MEDS: MULTIVITAMIN TABLET PO SCH (09:57)
--- NOTE | 2020-04-16 10:26 | RADIOLOGY REPORT (SQ) ---
EXAM DESCRIPTION: CHEST 2 VIEWS IMAGES COMPLETED DATE/TIME: 04/16/2020 10:13 am REASON FOR STUDY: pneumonia COMPARISON: 04/13/2020 EXAM PARAMETERS: NUMBER OF VIEWS: two views TECHNIQUE: Digital Frontal and Lateral radiographic views of the chest acquired. RADIATION DOSE: NA LIMITATIONS: none FINDINGS: LUNGS AND PLEURA: Re- demonstration of right upper lobe consolidation and left mid lung at electasis. No new focal consolidation. No pleural effusion. No pneumothorax. MEDIASTINUM AND HILAR STRUCTURES: No masses or contour abnormalities. HEART AND VASCULAR STRUCTURES: Heart normal size. No evidence for failure. BONES: No acute findings. HARDWARE: None in the chest. OTHER: No other significant finding. IMPRESSION: Stable radiographic appearance of the chest demonstrating right upper lobe consolidation . TECHNICAL DOCUMENTATION: JOB ID: [id number] 2010 [employer]- All Rights Reserved Reading location - IP/workstation name: [email or web address]
[2020-04-16] MEDS: BENZONATATE 100 MG CAPSULE PO SCH ×2 (15:02→21:22)
[2020-04-16] MEDS ORDERED: VANCOMYCIN HCL 1,000 MG in DEXTROSE 5%-WATER 250 ML IV SCH (20:00)
[2020-04-17] MEDS: KETOROLAC TROMETHAMINE INJ/PF 30 MG/1 ML SDV IV SCH ×3 (00:13→13:07)
[2020-04-17] MEDS: PIPERACILLIN SODIUM/TAZOBACTAM 3.375 GM in NORMAL SALINE 100 ML IV SCH (05:19)
[2020-04-17] MEDS: BENZONATATE 100 MG CAPSULE PO SCH (05:20)
[2020-04-17] MEDS: PANTOPRAZOLE SODIUM 40 MG TABLET.DR PO SCH (05:21)
[2020-04-17 06:41] LABS: HEMATOCRIT 35.1 % (36.0-47.0); HEMOGLOBIN 12.1 g/dL (12.0-15.5); MEAN CORPUSCULAR HEMOGLOBIN 31.5 pg (27.0-33.4); MEAN CORPUSCULAR HGB CONC 34.5 g/dL (32.0-36.0); MEAN CORPUSCULAR VOLUME 91 fl (80-97); PLATELET COUNT 270 10^3/uL (150-450); RED BLOOD COUNT 3.85 10^6/uL (3.72-5.28); RED CELL DISTRIBUTION WIDTH 14.3 % (11.5-14.0); WHITE BLOOD COUNT 5.1 10^3/uL (4.0-10.5)
[2020-04-17 07:00] LABS: ALKALINE PHOSPHATASE 50 U/L (38-126); ANION GAP 6 (5-19); ASPARTATE AMINO TRANSFERASE 22 U/L (14-36); BILIRUBIN,DIRECT 0.3 mg/dL (0.0-0.4); BILIRUBIN,TOTAL 0.5 mg/dL (0.2-1.3); BLOOD UREA NITROGEN 20 mg/dL (7-20); CALCIUM 9.3 mg/dL (8.4-10.2); CARBON DIOXIDE 25 mmol/L (22-30); CHLORIDE 110 mmol/L (98-107); GLUCOSE 98 mg/dL (75-110); POTASSIUM 4.1 mmol/L (3.6-5.0); TOTAL PROTEIN 5.5 g/dL (6.3-8.2)
[2020-04-17 07:28] LABS: ABSOLUTE LYMPHOCYTES# (MANUAL) 0.8 10^3/uL (0.5-4.7); ABSOLUTE MONOCYTES # (MANUAL) 0.3 10^3/uL (0.1-1.4); BASOPHILS % (MANUAL) 1 % (0-2); LYMPHOCYTES % (MANUAL) 16 % (13-45); MONOCYTES % (MANUAL) 5 % (3-13); SEGMENTED NEUTROPHILS % (MAN) 39 % (42-78); TOTAL CELLS COUNTED 100
[2020-04-17 07:31] LABS: ANISOCYTOSIS SLIGHT; EOSINOPHILS % (MANUAL) 39 % (0-6); OVALOCYTES SLIGHT; PLATELET COMMENT ADEQUATE
[2020-04-17] MEDS: MULTIVITAMIN TABLET PO SCH (09:40)
[2020-04-17] MEDS: ENOXAPARIN SODIUM INJ 40 MG/0.4 ML DISP.SYRIN SUBCUT SCH (09:40)
[2020-04-17 12:04] VITALS: BP 148/55
[2020-04-19 13:09] LABS: PATH REVIEW PATHOLOGIST REVIEWED
--- NOTE | 2020-04-20 09:12 | PDOC DISCHARGE SUMMARY ---
Impression - Admit/DC Date/PCP Admission Date/Primary Care Provider: 04/13/20 12:18 LYNDON SIMPSON NP Discharge Date: 04/17/20 - Discharge Diagnosis (1) Bacterial pneumonia Is this a current diagnosis for this admission?: Yes (2) COVID-19 Is this a current diagnosis for this admission?: Yes (3) HTN (hypertension) Is this a current diagnosis for this admission?: Yes (4) Hypoxia Is this a current diagnosis for this admission?: Yes - Additional Information Resuscitation Status: Full Code Discharge Diet: Cardiac Discharge Activity: Activity As Tolerated, Balance Activity w/Rest, Slowly Incre ase Activity Referrals: LYNDON SIMPSON NP [Primary Care Provider] - 04/22/20 10:30 am Prescriptions: Albuterol Sulfate [Albuterol Sulfate Hfa] 1 - 2 puff IH Q4HP PRN #1 hfa.[email or web address] PRN Reason: Shortness Of Breath Amoxicillin/Potassium Clav [Augmentin 875-125 Tablet] 1 tab PO Q12 #12 tablet Oxycodone HCl/Acetaminophen [Percocet 5-325 mg Tablet] 1 tab PO Q6HP PRN #12 tablet PRN Reason: Benzonatate [Tessalon Perles 100 mg Capsule] 100 mg PO Q8 #12 capsule Home Medications: Multivitamin [Multivitamins] 1 tab PO DAILY 02/23/17 Acetaminophen [Tylenol 325 mg Tablet] 650 mg PO Q4HP PRN tablet 04/17/20 Albuterol Sulfate [Albuterol Sulfate Hfa] 1 - 2 puff IH Q4HP PRN #1 hfa.aer.ad 04/17/20 Amoxicillin/Potassium Clav [Augmentin 875-125 Tablet] 1 tab PO Q12 #12 tablet 04/17/20 Benzonatate [Tessalon Perles 100 mg Capsule] 100 mg PO Q8 #12 capsule 04/17/20 Oxycodone HCl/Acetaminophen [Percocet 5-325 mg Tablet] 1 tab PO Q6HP PRN #12 tablet 04/17/20 History of Present Illiness History of Present Illness: Per H&P by Dr. Jackson: KIM THOMAS is a 64 year old female with history of hypertension went to urgent care this morning with complaints of left jaw pain found to have very high blood pressures patient was referred to ER for further evaluation. Work-up in the ER shows right upper lobe consolidative pneumonia and the patient was hypoxic pulse ox is 89% at the time of arrival. Patient was started on Rocephin and Zithromax tested for COVID. As per the patient test was done 2 weeks ago at [facility] which was negative. Hospital Course Hospital Course: (1) Bacterial pneumonia Significantly improved; patient now maintaining oxygen saturations on room air with clear lung sounds and asymptomatic. Will complete course of antibiotics as outpatient; she is discharged on p.o. Augmentin. Patient was admitted to [facility] on continuous cardiac telemetry. Blood cultures are negative at 5 days. Sputum culture was never obtained as the patient does not have a productive cough. She was empirically placed on IV azithromycin and Rocephin. Patient is provided supplemental oxygen as needed maintain saturations greater than 89%. Scheduled and as needed nebulizer treatments. Robitussin as needed. Pulmonary toilet is encouraged with incentive spirometer, flutter valve, early ambulation. (2) Hypoxia Secondary to #1; resolved. Patient currently maintaining oxygen saturations while ambulatory on room air. (3) HTN (hypertension) Patient was noted to have elevated blood pressures. She was placed on Norvasc 10 mg daily with improvement. PRN hydralazine was available as needed for blood pressure control. Dietary discretion and lifestyle modification including weight loss were encouraged. (4) COVID-19 Ruled out; pelvis has been negative. Physical Exam Vital Signs: Temp Pulse Resp BP Pulse Ox 98.4 F 66 18 148/55 H 96 04/17/20 12:33 04/17/20 12:33 04/17/20 12:33 04/17/20 12:33 04/17/20 12:33 General appearance: PRESENT: no acute distress, cooperative, well-developed, well-nourished - Overweight Head exam: PRESENT: atraumatic, normocephalic Eye exam: PRESENT: conjunctiva pink, EOMI, PERRLA. ABSENT: scleral icterus Mouth exam: PRESENT: moist, tongue midline Respiratory exam: PRESENT: clear to auscultation kavin, symmetrical, unlabored, other - Room air. ABSENT: rales, rhonchi, wheezes Cardiovascular exam: PRESENT: RRR. ABSENT: diastolic murmur, rubs, systolic murmur Pulses: PRESENT: normal dorsalis pedis pul Vascular exam: PRESENT: normal capillary refill Extremities exam: PRESENT: full ROM. ABSENT: calf tenderness, clubbing, pedal edema Musculoskeletal exam: PRESENT: ambulatory Neurological exam: PRESENT: alert, awake, oriented to person, oriented to place, oriented to time, oriented to situation, CN II-XII grossly intact. ABSENT: motor sensory deficit Psychiatric exam: PRESENT: appropriate affect, normal mood. ABSENT: homicidal ideation, suicidal ideation Skin exam: PRESENT: dry, intact, warm. ABSENT: cyanosis, rash Results Laboratory Results: WBC 5.1 10^3/uL (4.0-10.5) 04/17/20 05:40 RBC 3.85 10^6/uL (3.72-5.28) 04/17/20 05:40 Hgb 12.1 g/dL (12.0-15.5) 04/17/20 05:40 Hct 35.1 % (36.0-47.0) L 04/17/20 05:40 MCV 91 fl (80-97) 04/17/20 05:40 MCH 31.5 pg (27.0-33.4) 04/17/20 05:40 MCHC 34.5 g/dL (32.0-36.0) 04/17/20 05:40 RDW 14.3 % (11.5-14.0) H 04/17/20 05:40 Plt Count 270 10^3/uL (150-450) 04/17/20 05:40 Lymph % (Auto) Not Reportable 04/17/20 05:40 [place] % (Auto) Not Reportable 04/17/20 05:40 Eos % (Auto) Not Reportable 04/17/20 05:40 Baso % (Auto) Not Reportable 04/17/20 05:40 Absolute Neuts (auto) Not Reportable 04/17/20 05:40 Absolute Lymphs (auto) Not Reportable 04/17/20 05:40 Absolute Monos (auto) Not Reportable 04/17/20 05:40 Absolute Eos (auto) Not Reportable 04/17/20 05:40 Absolute Basos (auto) Not Reportable 04/17/20 05:40 Total Counted 100 04/17/20 05:40 Seg Neutrophils % Not Reportable 04/17/20 05:40 Seg Neuts % (Manual) 39 % (42-78) L 04/17/20 05:40 Lymphocytes % (Manual) 16 % (13-45) 04/17/20 05:40 Atypical Lymphs % 2 % (0) 04/16/20 05:37 Monocytes % (Manual) 5 % (3-13) 04/17/20 05:40 Eosinophils % (Manual) 39 % (0-6) H D 04/17/20 05:40 Basophils % (Manual) 1 % (0-2) 04/17/20 05:40 Abs Neuts (Manual) 2.0 10^3/uL (1.7-8.2) 04/17/20 05:40 Abs Lymphs (Manual) 0.8 10^3/uL (0.5-4.7) 04/17/20 05:40 Abs Monocytes (Manual) 0.3 10^3/uL (0.1-1.4) 04/17/20 05:40 Absolute Eos (Manual) 2.0 10^3/uL (0.0-0.6) H 04/17/20 05:40 Abs Basophils (Manual) 0.1 10^3/uL (0.0-0.2) 04/17/20 05:40 Clumped Platelets PRESENT 04/13/20 09:04 Platelet Comment ADEQUATE 04/17/20 05:40 Poikilocytosis SLIGHT 04/16/20 05:37 Anisocytosis SLIGHT 04/17/20 05:40 Ovalocytes SLIGHT 04/17/20 05:40 RBC Morph Comment NORMO-CYTIC/CHROMIC 04/13/20 09:04 Sodium 141.3 mmol/L (137-145) 04/17/20 05:40 Potassium 4.1 mmol/L (3.6-5.0) 04/17/20 05:40 Chloride 110 mmol/L (98-107) H 04/17/20 05:40 Carbon Dioxide 25 mmol/L (22-30) 04/17/20 05:40 Anion Gap 6 (5-19) 04/17/20 05:40 BUN 20 mg/dL (7-20) 04/17/20 05:40 Creatinine 1.22 mg/dL (0.52-1.25) 04/17/20 05:40 Est GFR ( Amer) 54 (>60) L 04/17/20 05:40 Est GFR (MDRD) Non-Af 44 (>60) L 04/17/20 05:40 Glucose 98 mg/dL (75-110) 04/17/20 05:40 Hemoglobin A1c % 5.7 % (4.7-6.0) 04/14/20 03:42 Calcium 9.3 mg/dL (8.4-10.2) 04/17/20 05:40 Magnesium 2.3 mg/dL (1.6-2.3) 04/14/20 03:42 Total Bilirubin 0.5 mg/dL (0.2-1.3) 04/17/20 05:40 Direct Bilirubin 0.3 mg/dL (0.0-0.4) 04/17/20 05:40 Neonat Total Bilirubin Not Reportable 04/17/20 05:40 Neonat Direct Bilirubin Not Reportable 04/17/20 05:40 Neonat Indirect Bili Not Reportable 04/17/20 05:40 AST 22 U/L (14-36) 04/17/20 05:40 ALT 34 U/L (<35) 04/17/20 05:40 Alkaline Phosphatase 50 U/L (38-126) 04/17/20 05:40 Troponin I < 0.012 ng/mL 04/14/20 03:42 NT-Pro-B Natriuret Pep 126 pg/mL (<125) H 04/13/20 09:04 Total Protein 5.5 g/dL (6.3-8.2) L 04/17/20 05:40 Albumin 3.0 g/dL (3.5-5.0) L 04/17/20 05:40 Triglycerides 383 mg/dL (<150) H 04/14/20 03:42 Cholesterol 234.61 mg/dL (0-200) H 04/14/20 03:42 LDL Cholesterol Direct 142 mg/dL (<100) H 04/14/20 03:42 VLDL Cholesterol 76.6 mg/dL (10-31) H 04/14/20 03:42 HDL Cholesterol 46 mg/dL (>40) 04/14/20 03:42 TSH 2.74 uIU/mL (0.47-4.68) 04/14/20 03:42 COVID-19 Source NASOPHARYNGEAL 04/13/20 10:36 COVID-19 (KARL) NOT DETECTED 04/13/20 10:36 Slides for Path Review PATHOLOGIST REVIEWED 04/17/20 05:40 04/13/20 04/13/20 04/13/20 09:04 09:04 15:54 Troponin I < 0.012 < 0.012 NT-Pro-B Natriuret Pep 126 H 04/13/20 04/14/20 21:19 03:42 Troponin I < 0.012 < 0.012 NT-Pro-B Natriuret Pep Impressions: Facial Bones CT 04/13/20 00:00 IMPRESSION: No acute facial bone fracture. Chest X-Ray 04/13/20 09:38 IMPRESSION: Right upper lobe consolidation consistent with pneumonia. Chest X-Ray 04/16/20 00:00 IMPRESSION: Stable radiographic appearance of the chest demonstrating right upper lobe consolidation. Plan Plan of Treatment: Patient is discharged home in stable condition. Follow-up with primary care provider within 1 week. Complete full course of antibiotic therapy. Take other medication as prescribed. Eat a heart healthy diet. Do NOT smoke. Return to emergency department as needed for concerning symptoms. Time Spent: Greater than 30 Minutes Stroke Is this a Stroke Patient?: No Acute Heart Failure Is this a Heart Failure Patient?: No
== END 2020-04-17 14:00 | disposition home or self-care (01) | DRG 195 ==
LOC: ER 09:14 → EH 12:18 → 3N 17:15 → 3W 04-14 18:25
PROVIDERS: ADMIT Internal Medicine; ATTEND Internal Medicine
DX: J15.9 Unspecified bacterial pneumonia (principal); I10 Essential (primary) hypertension; Z20.828 Contact with and (suspected) exposure to other viral communicable diseases; R68.84 Jaw pain; R09.02 Hypoxemia
CPT/HCPCS: 36415; 70486; 71045; 71046; 80048; 80053; 80061; 83036; 83735; 83880; 84443; 84484; 85025; 87040; 87635; 93005; 93010; 96365; 96368; 96375; 99285; C9803; J0360; J0456; J0696; J1650; J1885; J2543; J3370; J3490; J7030; J7050; J7060